=== PATIENT | female | born 1960 | race Caucasian/White ===

== ENCOUNTER 2023-01-20 18:00 | Inpatient (IN) | payer BC, OTHER ==
[2023-01-20] MEDS ORDERED: Sodium Chloride 0.9% 10 ML Syringe FLUSH PRN (18:04)
[2023-01-20] MEDS ORDERED: Ondansetron 4 MG/2 ML SDV IVPUSH ONE (18:04)
[2023-01-20] MEDS ORDERED: fentaNYL 50 MCG/ML SDV IVPUSH ONE ×2 (18:05→19:05)
[2023-01-20] MEDS ORDERED: Sodium Chloride 0.9% 1,000 ML IV SCH ×3 (18:15→21:30)
[2023-01-20 19:55] LABS: ESTIMATED GFR 102 mL/min (>60)
[2023-01-20] MEDS ORDERED: Sodium Chloride 0.9% 50 ML IV SCH (20:30)
[2023-01-20] MEDS ORDERED: Iopamidol 612 MG/ML 100 ML Bottle IV SCH (20:30)
[2023-01-20] MEDS: fentaNYL 100 MCG/2 ML SDV IVPUSH PRN ×2 (20:34→21:36)
[2023-01-20] MEDS ORDERED: Ondansetron 4 MG/2 ML SDV IVPUSH PRN (22:03)
[2023-01-20] MEDS: Acetaminophen 500 MG Tab PO SCH (22:20)
[2023-01-20] MEDS: Pantoprazole 40 MG Vial IVPUSH SCH (22:22)
[2023-01-21] MEDS: fentaNYL 100 MCG/2 ML SDV IVPUSH PRN ×7 (00:54→13:02)
[2023-01-21] MEDS ORDERED: Meropenem 1 GM in Sodium Chloride 0.9% 100 ML IV SCH (08:00)
[2023-01-21 08:40] LABS: ESTIMATED GFR 98 mL/min (>60)
[2023-01-21] MEDS ORDERED: Magnesium Sulfate/Water 2 GM in Premix Bag 1 BAG IV ONE (10:00)
[2023-01-21] MEDS ORDERED: Scopolamine 1.5 MG Transdermal Patch TRDERM ONE (12:29)
[2023-01-21] MEDS ORDERED: Succinylcholine 200 MG/10 ML MDV ONE (13:04)
[2023-01-21] MEDS ORDERED: fentaNYL 250 MCG/5 ML SDV ONE (13:04)
[2023-01-21] MEDS ORDERED: Rocuronium 50 MG/5 ML Vial ONE (13:04)
[2023-01-21] MEDS ORDERED: Glycopyrrolate 0.2 MG/ML 5 ML MDV ONE (13:04)
[2023-01-21] MEDS ORDERED: Ondansetron 4 MG/2 ML SDV ONE (13:04)
[2023-01-21] MEDS ORDERED: Neostigmine Methylsulfate 1 MG/ML 5 ML Syringe ONE (13:04)
[2023-01-21] MEDS ORDERED: Dexamethasone 4 MG/ML SDV ONE (13:04)
[2023-01-21] MEDS ORDERED: Propofol 200 MG/20 ML SDV ONE (13:04)
[2023-01-21] MEDS ORDERED: Bupivacaine 0.5%/EPINEPHrine 1:200,000 50 ML MDV ONE (13:11)
[2023-01-21] MEDS ORDERED: Meropenem 500 MG SDV ONE ×2 (14:01)
[2023-01-21] MEDS ORDERED: Sodium Chloride 0.9% 20 ML ONE (14:02)
[2023-01-21] MEDS ORDERED: Lactated Ringers 1,000 ML ONE (14:45)
[2023-01-21] MEDS: Meropenem 1 GM in Sodium Chloride 0.9% 100 ML IV SCH (17:50)
[2023-01-21] MEDS: Dextrose 5%-Lactated Ringers 1,000 ML with MVI, Adult with Vitamin K 10 ML, Thiamine 20... IV SCH ×4 (18:19)
[2023-01-21] MEDS ORDERED: HYDROmorphone 0.5 MG/0.5 ML Syringe IVPUSH PRN (21:40)
[2023-01-21] MEDS: Acetaminophen 500 MG Tab PO SCH (22:41)
[2023-01-21] MEDS: Pantoprazole 40 MG Vial IVPUSH SCH (22:41)
[2023-01-22 05:03] LABS: ESTIMATED GFR 98 mL/min (>60)
[2023-01-22] MEDS: Meropenem 1 GM in Sodium Chloride 0.9% 100 ML IV SCH ×3 (05:22→22:47)
[2023-01-22] MEDS: Acetaminophen 500 MG Tab PO SCH ×4 (07:38→22:47)
[2023-01-22] MEDS: Dextrose 5%-Lactated Ringers 1,000 ML with MVI, Adult with Vitamin K 10 ML, Thiamine 20... IV SCH ×4 (08:29)
[2023-01-22] MEDS: Enoxaparin 40 MG/0.4 ML Syringe SUBCUT SCH (10:32)
[2023-01-22] MEDS: oxyCODONE 5 MG Tab PO PRN ×2 (14:26→20:59)
[2023-01-22] MEDS: Pantoprazole 40 MG Vial IVPUSH SCH (22:47)
[2023-01-23 04:53] LABS: ESTIMATED GFR 98 mL/min (>60)
[2023-01-23] MEDS: Dextrose 5%-Lactated Ringers 1,000 ML with MVI, Adult with Vitamin K 10 ML, Thiamine 20... IV SCH ×8 (05:01→14:28)
[2023-01-23] MEDS: Meropenem 1 GM in Sodium Chloride 0.9% 100 ML IV SCH ×3 (05:01→22:29)
[2023-01-23] MEDS: Acetaminophen 500 MG Tab PO SCH ×3 (07:54→22:30)
[2023-01-23] MEDS: Enoxaparin 40 MG/0.4 ML Syringe SUBCUT SCH (08:19)
[2023-01-23] MEDS ORDERED: Magnesium Sulfate/Water 2 GM in Premix Bag 1 BAG IV ONE (09:00)
[2023-01-23] MEDS ORDERED: Pantoprazole 40 MG Tab.CR PO SCH (21:00)
[2023-01-24 05:35] LABS: ESTIMATED GFR 102 mL/min (>60)
[2023-01-24] MEDS: Meropenem 1 GM in Sodium Chloride 0.9% 100 ML IV SCH ×2 (05:48→14:28)
[2023-01-24] MEDS: Acetaminophen 500 MG Tab PO SCH ×2 (07:15→14:27)
[2023-01-24] MEDS: Enoxaparin 40 MG/0.4 ML Syringe SUBCUT SCH (09:46)
[2023-01-24] MEDS ORDERED: Bisacodyl 10 MG Supp RECTAL PRN (15:12)
== END 2023-01-24 16:15 | disposition home or self-care (01) | DRG 356 ==
LOC: JP.ED 18:00 → JP.SDS 01-21 12:54 → JP.ICU 01-21 17:00
PROVIDERS: ADMIT Student in an Organized Health Care Education/Training Program; ATTEND Student in an Organized Health Care Education/Training Program
PROC: 0W9G4ZZ Drainage of Peritoneal Cavity, Percutaneous Endoscopic Approach (ICD-10-PCS; principal; 2023-01-21)
PROC: 0W9J40Z Drainage of Pelvic Cavity with Drainage Device, Percutaneous Endoscopic Approach (ICD-10-PCS; principal; 2023-01-21)
PROC: 0FL Hepatobiliary System and Pancreas, Occlusion (ICD-10-PCS; principal; 2023-01-21)
PROC: 0FQ04ZZ Repair Liver, Percutaneous Endoscopic Approach (ICD-10-PCS; principal; 2023-01-21)
PROC: 0F9040Z Drainage of Liver with Drainage Device, Percutaneous Endoscopic Approach (ICD-10-PCS; principal; 2023-01-21)
PROC: 0FL84ZZ Occlusion of Cystic Duct, Percutaneous Endoscopic Approach (ICD-10-PCS; principal; 2023-01-21)
DX: K91.89 Other postprocedural complications and disorders of digestive system (principal); K65.3 Choleperitonitis; E44.0 Moderate protein-calorie malnutrition; K56.7 Ileus, unspecified; J45.909 Unspecified asthma, uncomplicated; Z90.49 Acquired absence of other specified parts of digestive tract; Z88.0 Allergy status to penicillin; Z88.8 Allergy status to other drugs, medicaments and biological substances; Z79.899 Other long term (current) drug therapy; Z90.89 Acquired absence of other organs; Z98.51 Tubal ligation status; Z68.27 Body mass index [BMI] 27.0-27.9, adult
CPT/HCPCS: 36415; 74177; 78226; 78226-26; 80053; 83605; 83690; 83735; 84100; 84484; 85025; 85027; 93005; 93010; 99285; A9270-GY; A9537; C9113; J0131; J0330; J1100; J1170; J1650; J2185; J2405; J2704; J2710; J2805; J3010; J3411; J3475; J3490; J7030; J7120; J7121; Q9967